=== PATIENT | female | born 1955 | race Caucasian/White ===

== ENCOUNTER → 2022-07-05 09:28 | Outpatient (CLI) | payer MEDICARE, SELFPAY ==
--- NOTE | 2022-07-05 09:39 | XR_ITS ---
FINAL REPORT CLINICAL HISTORY: pain across mets FINDINGS: 3 weight-bearing views of the right foot were obtained. Deformity of the 1st proximal phalanx could represent sequela of prior injury. There is no acute fracture or dislocation. There are mild and moderate degenerative changes. Calcaneal spurs are present. The soft tissues are unremarkable. IMPRESSION: Mild and moderate degenerative change. Deformity of the 1st proximal phalanx could represent sequela of prior injury. Reviewed, Interpreted and Dictated by Kilo Del Real III, MD Transcribed by Raman Willett Authenticated and [facility]
--- NOTE | 2022-07-05 09:39 | XR_ITS ---
FINAL REPORT CLINICAL HISTORY: pain across mets FINDINGS: 3 weight-bearing views of the left foot were obtained. There is no acute fracture or dislocation. Mild and moderate degenerative changes are greatest at the midfoot. Calcaneal spurs are present. The soft tissues are unremarkable. IMPRESSION: Mild and moderate degenerative change. Reviewed, Interpreted and Dictated by Kilo Del Real III, MD Transcribed by Raman Willett Authenticated and [facility]
== END ==
PROVIDERS: PCP Emergency Medicine; Visit Provider Podiatrist
DX: M79.671 Pain in right foot (principal); M79.672 Pain in left foot
CPT/HCPCS: 73630